=== PATIENT | female | born 2000 | race Hispanic/Latino ===

== ENCOUNTER 2019-03-12 22:06 | Emergency (ER) | payer OTHER ==
[~2019-03-12] VITALS: Ht 160 cm; Wt 63.5 kg
[2019-03-12 23:33] VITALS: BP 114/64
== END 2019-03-12 23:40 | disposition home or self-care (01) ==
LOC: ER 22:06
DX: H57.12 Ocular pain, left eye (principal); H10.232 Serous conjunctivitis, except viral, left eye
CPT/HCPCS: 99282